=== PATIENT | female | born 1990 | race African-American/Black ===

== ENCOUNTER 2018-03-14 20:24 | Emergency (ER) | payer OTHER ==
[~2018-03-14] VITALS: Ht 157.5 cm; Wt 59.4 kg
[~2018-03-14 20:24] MED LIST: SERT100T5 PO
[2018-03-14 20:30] VITALS: BP 122/76
[2018-03-14 21:30] LABS: BASOPHILS # (AUTO) 0.03 x10^3/uL (0-0.1); BASOPHILS % (AUTO) 0 % (0-1); EOSINOPHILS # (AUTO) 0.08 x10^3/uL (0-0.4); EOSINOPHILS % (AUTO) 1 % (1-7); LYMPHOCYTES # (AUTO) 3.67 x10^3/uL (1-3.4); LYMPHOCYTES % (AUTO) 54 % (22-44); MD NO; MEAN CORPUSCULAR HEMOGLOBIN 30.5 pg (27.0-34.8); MEAN CORPUSCULAR HGB CONC 33.6 g/dL (32.4-35.8); MEAN CORPUSCULAR VOLUME 90.8 fL (80-100); MEAN PLATELET VOLUME 7.4 fL (7.4-10.4); MONOCYTES # (AUTO) 0.56 x10^3/uL (0.2-0.8); MONOCYTES % (AUTO) 8 % (2-9); NEUTROPHILS # (AUTO) 2.52 x10^3/uL (1.8-6.8); NEUTROPHILS % (AUTO) 37 % (42-75); PLATELET COUNT 330 x10^3/uL (130-400); RED BLOOD COUNT 4.74 x10^6/uL (3.82-5.3); RED CELL DISTRIBUTION WIDTH 13.1 % (9.6-15.2)
[2018-03-14 21:44] LABS: MICROSCOPIC NOT IND
[2018-03-14 21:44] LABS: ALANINE AMINOTRANSFERASE 38 U/L (12-78); ALBUMIN 3.8 g/dL (3.4-5.0); ANION GAP 7 mmol/L (5-15); CHLORIDE 105 mmol/L (98-107); CREATININE 0.94 mg/dL (0.55-1.02)
[2018-03-14 21:46] LABS: ALKALINE PHOSPHATASE 46 U/L (45-117); BILIRUBIN,TOTAL 0.9 mg/dL (0.2-1.0); TOTAL PROTEIN 7.6 g/dL (6.4-8.2)
[2018-03-14 21:49] LABS: CULTURE INDICATED? NO
[2018-03-14] MEDS ORDERED: OMNIPAQUE 350 MG/ML, 100ML BOTTLE ONE (22:00)
== END 2018-03-14 22:49 | disposition home or self-care (01) ==
LOC: ED 22:25
DX: R10.32 Left lower quadrant pain (principal); R10.12 Left upper quadrant pain; F17.200 Nicotine dependence, unspecified, uncomplicated
CPT/HCPCS: 36415; 74177; 80053; 81003; 81025; 83690; 85025; 99285; Q9967

== ENCOUNTER 2018-12-02 17:12 | Inpatient (IN) | payer MEDICAID ==
[~2018-12-02] VITALS: Ht 157.5 cm; Wt 71.4 kg
[~2018-12-02 17:12] MED LIST changes: +SERT100T32 PO; -SERT100T5 PO
[2018-12-02 18:14] LABS: MICROSCOPIC INDICATED
[2018-12-02] MEDS ORDERED: OXYTOCIN 30U/ 0.9% NaCL 500ML 500 ML IV PRN (19:27)
[2018-12-02] MEDS ORDERED: OXYTOCIN 30U/ 0.9% NaCL 500ML 500 ML IV ONE (19:27)
[2018-12-02] MEDS ORDERED: D5%-LACTATED RINGERS 1,000 ML IV SCH (19:27)
[2018-12-02] MEDS ORDERED: METOCLOPRAMIDE 5 MG/ML, 2ML IVPush PRN (19:30)
[2018-12-02] MEDS ORDERED: ALUMINUM/MAG/SIMETHICONE 30 ML UDC PO PRN (19:30)
[2018-12-02] MEDS ORDERED: TERBUTALINE 1 MG/ML, 1ML IVPush PRN ×2 (19:30)
[2018-12-02] MEDS ORDERED: CALCIUM CARBONATE 500 MG TAB.CHEW PO PRN (19:30)
[2018-12-02] MEDS ORDERED: FENTANYL PF 100 MCG/2ML IVPush PRN (19:30)
[2018-12-02] MEDS ORDERED: ONDANSETRON 2MG/ML, 2ML IVPush PRN (19:30)
[2018-12-02] MEDS ORDERED: SODIUM CHLORIDE FLUSH 10ML SYR IVF PRN (19:30)
[2018-12-02] MEDS ORDERED: FENTANYL PF 100 MCG/2ML IV PRN (19:30)
[2018-12-02] MEDS ORDERED: SODIUM CITRATE/CITRIC ACID 30 ML UDC PO PRN (19:30)
[2018-12-02] MEDS ORDERED: OXYTOCIN 30U/ 0.9% NaCL 500ML 500 ML ONE (19:53)
[2018-12-02 20:01] LABS: BASOPHILS # (AUTO) 0.03 x10^3/uL (0-0.1); BASOPHILS % (AUTO) 0 % (0-1); EOSINOPHILS # (AUTO) 0.08 x10^3/uL (0-0.4); EOSINOPHILS % (AUTO) 1 % (1-7); LYMPHOCYTES # (AUTO) 2.51 x10^3/uL (1-3.4); LYMPHOCYTES % (AUTO) 25 % (22-44); MD NO; MEAN CORPUSCULAR HEMOGLOBIN 30.9 pg (27.0-34.8); MEAN CORPUSCULAR HGB CONC 33.8 g/dL (32.4-35.8); MEAN CORPUSCULAR VOLUME 91.7 fL (80-100); MEAN PLATELET VOLUME 9.8 fL (7.4-10.4); MONOCYTES # (AUTO) 1.03 x10^3/uL (0.2-0.8); MONOCYTES % (AUTO) 10 % (2-9); NEUTROPHILS # (AUTO) 6.23 x10^3/uL (1.8-6.8); NEUTROPHILS % (AUTO) 63 % (42-75); PLATELET COUNT 182 x10^3/uL (130-400); RED BLOOD COUNT 4.41 x10^6/uL (3.82-5.3); RED CELL DISTRIBUTION WIDTH 13.7 % (9.6-15.2)
[2018-12-02] MEDS: LACTATED RINGERS 1,000 ML IV SCH ×2 (20:09→22:55)
[2018-12-02] MEDS ORDERED: MISOPROSTOL 200 MCG TABLET ONE (20:42)
[2018-12-02] MEDS ORDERED: LIDOCAINE 1%, 20ML ONE (20:42)
[2018-12-02] MEDS ORDERED: MISOPROSTOL 25 MCG TABLET ONE (20:43)
[2018-12-02] MEDS ORDERED: TERBUTALINE 1 MG/ML, 1ML ONE (21:07)
[2018-12-02] MEDS ORDERED: METOCLOPRAMIDE 5 MG/ML, 2ML ONE (21:29)
[2018-12-03] MEDS: OXYTOCIN 30U/ 0.9% NaCL 500ML 500 ML IV SCH ×6 (02:13→23:47)
[2018-12-03] MEDS: LACTATED RINGERS 1,000 ML IV SCH ×9 (02:13→23:47)
[2018-12-03] MEDS ORDERED: LACTATED RINGERS 1,000 ML IVBOLUS ONE (02:30)
[2018-12-03] MEDS ORDERED: morphine SULFATE/PF 0.5 MG/ML, 10ML ONE (02:39)
[2018-12-03] MEDS ORDERED: CEFAZOLIN 1,000 MG ONE (02:50)
[2018-12-03] MEDS ORDERED: OXYTOCIN 10 UNITS/ML, 1ML ONE (02:50)
[2018-12-03] MEDS ORDERED: DEXAMETHASONE 4 MG/ML, 1ML ONE (02:50)
[2018-12-03] MEDS ORDERED: KETOROLAC 30 MG/1 ML ONE (02:50)
[2018-12-03] MEDS ORDERED: WATER-INJECTION,STERILE 10 ML IV ONE (02:50)
[2018-12-03] MEDS ORDERED: ONDANSETRON 2MG/ML, 2ML ONE (02:50)
[2018-12-03] MEDS ORDERED: MISOPROSTOL 200 MCG TABLET PR PRN (04:00)
[2018-12-03] MEDS ORDERED: CALCIUM CARBONATE 500 MG TAB.CHEW PO PRN (04:00)
[2018-12-03] MEDS ORDERED: ONDANSETRON 2MG/ML, 2ML IV PRN (04:00)
[2018-12-03] MEDS ORDERED: morphine SULFATE 10 MG/ML, 1ML IVPush PRN ×2 (04:00)
[2018-12-03] MEDS ORDERED: METOCLOPRAMIDE 5 MG/ML, 2ML IV ONE (05:00)
[2018-12-03] MEDS ORDERED: SODIUM CITRATE/CITRIC ACID 30 ML UDC PO ONE (05:00)
[2018-12-03 05:30] VITALS: BP 104/72
[2018-12-03 07:30] VITALS: BP 105/69
[2018-12-03] MEDS: PRENATAL VIT/IRON/FA 1 EACH TABLET PO SCH (09:00)
[2018-12-03] MEDS: KETOROLAC 30 MG/1 ML IV SCH ×3 (09:47→21:52)
[2018-12-03 12:00] VITALS: BP 104/67
[2018-12-03 14:16] LABS: BASOPHILS # (AUTO) 0.01 x10^3/uL (0-0.1); BASOPHILS % (AUTO) 0 % (0-1); EOSINOPHILS % (AUTO) 0 % (1-7); LYMPHOCYTES # (AUTO) 0.96 x10^3/uL (1-3.4); LYMPHOCYTES % (AUTO) 6 % (22-44); MD NO; MEAN CORPUSCULAR HEMOGLOBIN 31.3 pg (27.0-34.8); MEAN CORPUSCULAR HGB CONC 33.6 g/dL (32.4-35.8); MEAN CORPUSCULAR VOLUME 92.9 fL (80-100); MEAN PLATELET VOLUME 10.5 fL (7.4-10.4); MONOCYTES # (AUTO) 0.54 x10^3/uL (0.2-0.8); MONOCYTES % (AUTO) 4 % (2-9); NEUTROPHILS # (AUTO) 13.82 x10^3/uL (1.8-6.8); NEUTROPHILS % (AUTO) 90 % (42-75); PLATELET COUNT 181 x10^3/uL (130-400); RED BLOOD COUNT 4.35 x10^6/uL (3.82-5.3); RED CELL DISTRIBUTION WIDTH 13.7 % (9.6-15.2)
[2018-12-03 16:00] VITALS: BP 104/68
[2018-12-03 19:05] VITALS: BP 105/66
[2018-12-03 23:57] VITALS: BP 97/61
[2018-12-04] MEDS: LACTATED RINGERS 1,000 ML IV SCH ×8 (02:13→19:47)
[2018-12-04 03:50] VITALS: BP 103/67
[2018-12-04] MEDS: KETOROLAC 30 MG/1 ML IV SCH ×4 (03:50→21:30)
[2018-12-04] MEDS: OXYTOCIN 30U/ 0.9% NaCL 500ML 500 ML IV SCH ×4 (08:13→19:47)
[2018-12-04 08:30] VITALS: BP 103/66
[2018-12-04] MEDS: PRENATAL VIT/IRON/FA 1 EACH TABLET PO SCH (10:35)
[2018-12-04] MEDS: DOCUSATE 100 MG CAPSULE PO PRN ×2 (10:35→19:46)
[2018-12-04] MEDS: OXYcodone/APAP 5/325MG TABLET PO PRN ×2 (15:02→19:46)
[2018-12-04 20:00] VITALS: BP 101/62
[2018-12-04] MEDS: IBUPROFEN 600 MG TABLET PO PRN (21:54)
[2018-12-05] MEDS: OXYcodone/APAP 5/325MG TABLET PO PRN ×3 (00:09→07:59)
[2018-12-05] MEDS: IBUPROFEN 600 MG TABLET PO PRN ×2 (04:57→15:13)
[2018-12-05 07:05] VITALS: BP 90/52
[2018-12-05] MEDS: PRENATAL VIT/IRON/FA 1 EACH TABLET PO SCH (07:59)
[2018-12-05] MEDS: DOCUSATE 100 MG CAPSULE PO PRN (07:59)
[2018-12-05] MEDS: OXYcodone IR 5MG TABLET PO PRN ×2 (08:47→15:13)
[2018-12-05] MEDS ORDERED: ONDANSETRON ODT 4 MG ONE (17:41)
[2018-12-05] MEDS ORDERED: ONDANSETRON ODT 4 MG PO PRN (18:00)
[2018-12-05 20:25] VITALS: BP 105/66
[2018-12-06] MEDS: IBUPROFEN 600 MG TABLET PO PRN ×3 (00:25→14:15)
[2018-12-06] MEDS: DOCUSATE 100 MG CAPSULE PO PRN ×2 (00:25→08:30)
[2018-12-06] MEDS: OXYcodone/APAP 5/325MG TABLET PO PRN ×3 (01:25→12:42)
[2018-12-06 08:10] VITALS: BP 105/66
[2018-12-06] MEDS: PRENATAL VIT/IRON/FA 1 EACH TABLET PO SCH (08:31)
[2018-12-06] MEDS ORDERED: OXYC-302 PO (14:38)
[2018-12-06] MEDS ORDERED: IBUP-1222 PO (14:38)
== END 2018-12-06 15:40 | disposition home or self-care (01) | DRG 788 ==
LOC: LDOP 17:12 → LDIP 19:39 → 2NW 12-03 05:24
PROVIDERS: ADMIT Obstetrics & Gynecology; ATTEND Obstetrics & Gynecology
PROC: 10D00Z1 Extraction of Products of Conception, Low, Open Approach (ICD-10-PCS; principal; 2018-12-03)
DX: O76 Abnormality in fetal heart rate and rhythm complicating labor and delivery (principal); Z37.0 Single live birth; Z3A.39 39 weeks gestation of pregnancy
CPT/HCPCS: 36415; 76815; 81001; 82803; 85025; 86850; 86900; G0378; J0690; J1100; J1885; J2274; J2405; Q0162; J2590; J2765; J7120

== ENCOUNTER 2020-03-21 16:07 | Emergency (ER) | payer BC, MEDICAID ==
[~2020-03-21] VITALS: Ht 157.5 cm; Wt 48.0 kg
[~2020-03-21 16:07] MED LIST changes: +IBUP-1222 PO; +OXYC-302 PO
[2020-03-21 18:38] LABS: MEAN CORPUSCULAR HEMOGLOBIN 31.3 pg (27.0-34.8); MEAN CORPUSCULAR HGB CONC 34.1 g/dL (32.4-35.8); MEAN CORPUSCULAR VOLUME 91.9 fL (80-100); MEAN PLATELET VOLUME 7.9 fL (7.4-10.4); PLATELET COUNT 227 x10^3/uL (130-400); RED BLOOD COUNT 4.27 x10^6/uL (3.82-5.3); RED CELL DISTRIBUTION WIDTH 12.9 % (9.6-15.2)
[2020-03-21] MEDS ORDERED: IBUPROFEN 200 MG TABLET ONE (18:43)
[2020-03-21 18:50] LABS: ALANINE AMINOTRANSFERASE 24 U/L (12-78); ALBUMIN 3.4 g/dL (3.4-5.0); ANION GAP 4 mmol/L (5-15); CALCIUM 8.5 mg/dL (8.5-10.1); CHLORIDE 110 mmol/L (98-107); CREATININE 0.84 mg/dL (0.55-1.02)
[2020-03-21 18:53] LABS: ALKALINE PHOSPHATASE 39 U/L (45-117); BILIRUBIN,TOTAL 0.8 mg/dL (0.2-1.0); TOTAL PROTEIN 7.2 g/dL (6.4-8.2)
[2020-03-21 19:00] LABS: MD YES
[2020-03-21] MEDS ORDERED: IBUPROFEN 600 MG TABLET PO ONE (19:00)
[2020-03-21 19:13] LABS: MICROSCOPIC AUTO
--- NOTE | 2020-03-21 19:49 | NUR ---
Pt to room 29 per mio. Pt presents to the ED tonight with c/o abdominal pain, that caused a little bit of chest pain and that made her SOB. Pt denies any sore throat or cough. Pt denies having any bouts of vomiting or diarrhea. Pt states this has been going on for a few days now. Pt on monitor, placed in gown, given call light with instructions. MD in to assess and orders received. Ibuprofen given without diff, and urine sent to lab.
[2020-03-21 19:54] LABS: BASOS#(MANUAL) 0.07 x10^3/uL (0-0.1); BASOS% (MANUAL) 1 % (0-1); LYMPHS% (MANUAL) 50 % (22-44); MONOS#(MANUAL) 0.42 x10^3/uL (0.3-2.7); MONOS% (MANUAL) 6 % (2-9); REACTIVE LYMPHS # (MANUAL) 0.21 x10^3/uL (0-0); REACTIVE LYMPHS % (MANUAL) 3 % (0-0); SEGS% (MANUAL) 40 % (42-75)
[2020-03-21 19:55] LABS: <PLATELET ESTIMATE> ADEQUATE; <PLT MORPHOLOGY> NORMAL PLT MORPH; <RBC MORPHOLOGY> NORMAL
--- NOTE | 2020-03-21 20:52 | NUR ---
Discharge instructions given to patient with one prescription. Pt instructed on use of medications, how to store, disposal, usage and side effects. Pt verbalizes understanding of all instructions and follow up. Work not provided for one off. Pt ambulated out of ED per pedis.
[2020-03-21 20:53] VITALS: BP 114/68
== END 2020-03-21 20:55 | disposition home or self-care (01) ==
LOC: ED 18:26
DX: G44.209 Tension-type headache, unspecified, not intractable (principal); N30.00 Acute cystitis without hematuria; R06.02 Shortness of breath; R07.9 Chest pain, unspecified; G43.909 Migraine, unspecified, not intractable, without status migrainosus; Z87.891 Personal history of nicotine dependence
CPT/HCPCS: 36415; 71046; 80053; 81001; 83690; 84703; 85025; 87086; 93005; 99285

== ENCOUNTER 2020-11-07 10:35 | Emergency (ER) | payer MEDICAID ==
[~2020-11-07] VITALS: Ht 157.5 cm; Wt 53.4 kg
--- NOTE | 2020-11-07 10:54 | NUR ---
C/O CHEST PAIN AND LEFT ARM PAIN SINCE LAST NIGHT, SENT HERE FROM . PLACED ON VITALS AND CARDIAC MONITORS.
[2020-11-07] MEDS ORDERED: PLEC3TAB2 PO (10:59)
[2020-11-07] MEDS ORDERED: ETON1VAG VG (10:59)
[2020-11-07] MEDS ORDERED: OMEP20CA20 PO (10:59)
[2020-11-07] MEDS ORDERED: SUMA50TA4 PO (10:59)
[2020-11-07] MEDS ORDERED: ASPIRIN 81 MG TABLET CHEW ONE (11:44)
[2020-11-07] MEDS ORDERED: ONDA-89 PO (11:53)
[2020-11-07 11:56] LABS: BASOPHILS % (AUTO) 0 % (0-1); EOSINOPHILS % (AUTO) 0 % (1-7); LYMPHOCYTES % (AUTO) 43 % (22-44); MEAN CORPUSCULAR HEMOGLOBIN 30.6 pg (27.0-34.8); MEAN CORPUSCULAR HGB CONC 33.9 g/dL (32.4-35.8); MEAN PLATELET VOLUME 7.8 fL (7.4-10.4); MONOCYTES % (AUTO) 7 % (2-9); NEUTROPHILS % (AUTO) 49 % (42-75); PLATELET COUNT 249 x10^3/uL (130-400); RED BLOOD COUNT 4.62 x10^6/uL (3.82-5.3); RED CELL DISTRIBUTION WIDTH 12.8 % (9.6-15.2)
[2020-11-07 12:00] LABS: ALBUMIN 3.6 g/dL (3.4-5.0); ANION GAP 6 mmol/L (5-15); CHLORIDE 110 mmol/L (98-107)
[2020-11-07] MEDS ORDERED: ASPIRIN 81 MG TABLET CHEW PO ONE (12:00)
[2020-11-07 12:06] LABS: CREATININE 0.88 mg/dL (0.55-1.02); TROPONIN I < 0.015 ng/mL (0.000-0.045)
[2020-11-07 12:07] LABS: MD NO
[2020-11-07 12:54] VITALS: BP 103/71
== END 2020-11-07 13:05 | disposition home or self-care (01) ==
LOC: ED 11:35
DX: R07.89 Other chest pain (principal); F41.1 Generalized anxiety disorder; R06.4 Hyperventilation; R00.0 Tachycardia, unspecified
CPT/HCPCS: 36415; 71045; 80048; 82040; 84484; 85025; 93005; 99285